=== PATIENT | female | born 1965 | race Caucasian/White ===

== ENCOUNTER 2016-10-24 14:41 | Emergency (ER) | payer OTHER ==
[~2016-10-24] VITALS: Ht 170.2 cm; Wt 125.9 kg
[~2016-10-24 14:41] MED LIST: ASP81TEC PO; Fish Oil; GLU500 PO; INSU100V10 SQ; PRI20 PO; Vitamin D PO; ZES20 PO; lovastatin; niacin
[2016-10-24 14:46] VITALS: BP 146/86; PULSE 111; RESP 18; O2SAT 97
[2016-10-24 15:33] LABS: BASOPHILS % (AUTO) 0.7 % (0-3); EOSINOPHILS % (AUTO) 2.4 % (0-5); MONOCYTES % (AUTO) 6.5 % (4-12); Mean Corpuscular Hemoglobin 28.5 pg (27.0-35.0); Mean Corpuscular Volume 86.5 fL (81-100); NEUTROPHILS % (AUTO) 63.6 % (40-74); Platelet Count 257 bil/L (150-400)
[2016-10-24 15:37] VITALS: BP 136/84; PULSE 104; RESP 18; O2SAT 97
[2016-10-24] MEDS ORDERED: POTA-62 PO (15:44)
[2016-10-24] MEDS ORDERED: INSU100V7 SUBQ (15:44)
[2016-10-24] MEDS ORDERED: METF500T4 PO (15:44)
[2016-10-24] MEDS ORDERED: OMEG1000 PO (15:44)
[2016-10-24] MEDS ORDERED: OMEG-81 PO (15:44)
[2016-10-24] MEDS ORDERED: INSLIS SUBQ (15:44)
[2016-10-24] MEDS ORDERED: LOSA25TA21 PO (15:46)
--- NOTE | 2016-10-24 15:55 | DRSVH ---
PROCEDURE: X-RAY CHEST ONE VIEW, PORTABLE ([id number]) INDICATIONS: Chest pain. TECHNIQUE: One view of the chest was acquired. COMPARISON: [facility], CR, CHEST 2VW, 05/10/2009, 10:10. FINDINGS: Surgical changes and devices: None. Lungs and pleura: No pleural effusions or pneumothorax. Lungs are clear. Mediastinum: Mediastinal contours appear normal. Heart size is normal. Bones and chest wall: No suspicious bony lesions. Overlying soft tissues appear unremarkable. IMPRESSION: Negative chest. No acute cardiopulmonary process is suspected. Dictated by: Ronny Figueroa M.D. on 10/24/2016 at 14:53 Approved by: Ronny Figueroa M.D. on 10/24/2016 at 14:53
[2016-10-24 15:56] LABS: TROPONIN T < 0.010 ug/L (0.0-0.011)
[2016-10-24 16:17] LABS: Magnesium 1.3 mg/dL (1.6-2.6)
[2016-10-24 16:34] VITALS: BP 133/88; PULSE 101; RESP 20; O2SAT 97
[2016-10-24] MEDS ORDERED: Magnesium Sulf 2 Gm/50mL Water 2 GM in IV Premix 1 EACH IV ONE (16:55)
--- NOTE | 2016-10-24 16:55 | ED.REPORT ---
HPI-Chest Pain 40 and Over Date of Service Oct 24, 2016 ED Provider: Alex Soares MD This is a 50 year old female with a history of DM, HTN, GERD, hyperlipidemia presenting to the emergency department due to right sided chest pain that began one week ago. The pain has been constant and has not improved with Tums. It is described as a "gas bubble" sensation. Pain has been constant but moves intermittently. She denies left sided pain. Associated symptoms include bilateral lower extremity swelling. Denies shortness of breath. fever, chills, nausea, vomiting, abdominal pain, numbness or weakness in extremities, diaphoresis. Nursing Notes Stated Complaint: UPPER RIGHT CHEST PAIN AND SWOLLEN FEET Chief Complaint: Chest Pain Nursing Notes Reviewed: Yes ([employer], Lingu[employer] not reconciled) Allergies: Coded Allergies: latex (Verified Allergy, Severe, rash, 05/03/09) Uncoded Allergies: ETOH (Allergy, Severe, gets very sick, 04/29/09) Scheduled ([lovastatin]) HS ([Vitamin D]) 1,000 MG PO DAILY Hydrochlorothiazide (Hydrochlorothiazide) 25 Mg Tablet 50 MG PO DAILY INSULIN GLARGINE-Expunged Drug, Do Not Renew! (Lantus-Expunged Drug, Do Not Renew!) 100 Unit/1 Ml Vial 45 U SQ AM Insulin Glargine (Lantus U100 Insulin Vial) 100 Unit/Ml Vial 48 UNIT SUBQ EVENING Insulin Human Lispro (HumaLOG U100 Insulin Vial) 100 Unit/Ml Unit 15 UNIT SUBQ TID Check blood sugars before meals and at bedtime. Use correction factor only before meals. Blood Sugar Lispro Correction: <151, 0 units; 151-175, 1 unit; 176-200, 2 units; 201-225, 3 units; 226-250, 4 units; 251-275, 5 units; 276-300 , 6 units; 301-325, 7 units; 326-350, 8 units; 351-375, 9 units; 376-400, 10 units; >400, 12 units. Losartan Potassium (Losartan Potassium) 25 Mg Tablet 25 MG PO DAILY Magnesium Oxide (Magnesium Oxide) 400 Mg Tablet 400 MG PO DAILY Metformin (Metformin) 500 Mg Tablet 1,500 MG PO HS Metformin-Expunged Drug, Do Not Renew! (Metformin-Expunged Drug, Do Not Renew!) 500 Mg Tablet 1,000 MG PO AM [place]-3 Fatty Acids (Fish Oil Concentrate) 1,000 Mg Capsule 2,000 MG PO BID Omeprazole-Expunged Drug, Do Not Renew! (Omeprazole-Expunged Drug, Do Not Renew! ) 20 Mg Capcr 20 MG PO BID Potassium Chloride ER (Potassium Chloride ER) 20 Meq Tablet.er 20 MEQ PO DAILY TAKE WITH FOOD Scheduled PRN Nitroglycerin SL (Nitroglycerin SL) 0.4 Mg Tab.subl 0.4 MG SL DIRECTED PRN PRN Esophageal spasm Take 1 tab only IF needed for esophageal spasm. Miscellaneous Medications [place]-3 Fatty Acids/Fish Oil (Fish Oil 1,000 mg Softgel) 1 Each Capsule 1 EACH PO General Time Seen by MD: 16:54 Chief Complaint Chest pain Hx Obtained From: Patient Arrived By: Walk-in Sudden in Onset?: Yes Onset Occurred: 1 week ago Symptom Duration: Since onset Severity: Current: Mild Pertinent Negative: Pt denies other symptoms Recent Healthcare: No recent doctor visit, No recent hospitalization Similar Sx Previous: No Risk Factors )( CAD Risk Stratification Diabetes mellitus Family history Hyperlipidemia Hypertension Risk factors reviewed Past Medical History Past Medical History Diabetes Hypertension GERD Reports: Hyperlipidemia Past Surgical History Laparoscopy for endometriosis 1998 Reports: Cholecystectomy (1987) Smoking History Never Smoker Ambulatory Status Independent Review of Systems Constitutional: Denies: Chills, Fever Complete sys rev & neg: except as marked. Physical Exam Initial Vital Signs Vital Signs (First) Date Time Temp Pulse Resp B/P Pulse Ox O2 Delivery O2 Flow Rate FiO2 10/24/16 14:46 36.7 111 18 146/86 97 Room Air Initial VS: Reviewed, Vital signs abnormal Head / Eyes: Atraumatic, Normocephalic, PERRL ENT: Mucous membranes moist, Conjunctiva normal, No scleral icterus Neck: Supple, Non-tender, Full range of motion Extremities: Vascular intact, Neuro intact, No swelling, No tenderness Skin: Warm, Dry, No cyanosis Neurologic: Alert, Oriented, Nonfocal Psychiatric: Mood/affect normal, Behavior normal, Normal thought content General/Constitutional: Awake, Alert Respiratory / Chest: Breath sounds NL, Breath sounds = bilat, No respiratory distress, No rales, No rhonchi, No wheezing, No stridor, No chest tenderness Cardiovascular: Heart rate NL, Regular rhythm, Heart sounds NL, No gallop, No murmurs, No rubs, Peripheral circulation NL, Pulses = bilaterally No edema in LE Abdomen: Soft, Non-tender, McBurney's non-tender, No guarding, No rebound, BS normoactive, No distention, No hernia, No palpable mass Interpretation & Diagnostics Lab Results Interpretation Result Diagram: 10/24/16 1526 10/24/16 1526 Test 10/24/16 15:26 10/24/16 17:15 White Blood Count 9.7th/mm3 (3.8-10.1) Red Blood Count 4.52mil/mm3 (3.90-5.20) Hemoglobin 12.9g/dL (12.0-15.6) Hematocrit 39.1% (35.0-46.0) Mean Corpuscular Volume 86.5fL (81-100) Mean Corpuscular Hemoglobin 28.5pg (27.0-35.0) Mean Corpuscular Hemoglobin Concent 33.0% (32.0-37.0) Red Cell Distribution Width 14.0% (12.3-15.4) Platelet Count 257bil/L (150-400) Neutrophils (%) (Auto) 63.6% (40-74) Lymphocytes (%) (Auto) 26.3% (14-46) Monocytes (%) (Auto) 6.5% (4-12) Eosinophils (%) (Auto) 2.4% (0-5) Basophils (%) (Auto) 0.7% (0-3) Sodium Level 136mEq/L (134-144) Potassium Level 3.4mEq/L (3.5-5.2) Chloride Level 93mEq/L (97-108) Carbon Dioxide Level 24mmol/L (18-29) Blood Urea Nitrogen 12mg/dL (6-24) Creatinine 0.78mg/dL (0.57-1.00) Estimat Glomerular Filtration Rate 113mL/min (>59) Glucose Level 230mg/dL (60-99) Calcium Level 9.7mg/dL (8.5-10.1) Magnesium Level 1.3mg/dL (1.6-2.6) Total Bilirubin 0.3mg/dL (0.0-1.2) Aspartate Amino Transf (AST/SGOT) 21U/L (0-50) Alanine Aminotransferase (ALT/SGPT) 28U/L (0-32) Alkaline Phosphatase 68U/L (25-150) Total Protein 7.5g/dL (6.4-8.4) Albumin 3.9g/dL (3.4-5.0) Hold Hassan Top Tube Received (Received) Troponin T < 0.010ug/L (0.0-0.011) Lab Results Interpretation: CBC normal CMP Mild nonspecific hypokalemia, mild hyperglycemia Troponin #1 negative Magnesium low ECG Interpretation ECG Interpretation: Sinus tachycardia at a rate of 106 Time: 17:03 Interpreted by: ED physician X-Ray Chest Interpretation Chest Xray Interpretation: IMPRESSION: Negative chest. No acute cardiopulmonary process is suspected. Dictated by: Ronny Figueroa M.D. on 10/24/2016 at 14:53 Approved by: Ronny Figueroa M.D. on 10/24/2016 at 14:53 Re-Eval/Medical Decision Med Decision/Clinical Course Patient's calculated HEART score is 3 (Low risk) His is a 50-year-old female with multiple cardiac risk factors, but no prior history of heart disease. She has had atypical right sided nonexertional chest discomfort continuously present for the past 3 days, called her PCP she thought it was gas combined with some anxiety-but with her risk factors was sent to the ED for further evaluation., And again it is been continuously present. His been no shortness breath, no diaphoresis. She tried some antacids with no relief. She appears well. Her EKG reveals no signs of acute ischemia. She had blood work which was normal including 2 sets of troponins. Chest x-ray was normal. She had complete relief with a single nitroglycerin, raising the possibility of esophageal spasm. Complaining some trace edema of the feet, which is a chronic issue for which he is on hydrochlorothiazide. She has no overt signs of heart failure that I can appreciate, and none is evident on chest x-ray. At this point the patient's low risk for acute cardiac event, I find no evidence clinically to suggest pulmonary embolism or need for testing. The patient is being discharged with routine precautions, she will increase her hydrochlorothiazide for a few days and then return to her baseline dose, additionally her magnesium was slightly low so I recommended oral magnesium for the next week or 2. Routine precautions were reviewed. Give the patient did have complete relief from nitroglycerin and that she would like some medicine to take home, I offered prescription for some nitroglycerin for the possible esophageal spasm, the instructions the patient can take only one (no not repeat doses) if needed. Additionally she does need to follow-up with Chris Patient is discharged much improved condition. Source of Hx: Old records Time of Eval: 18:09 Re-Evaluation/Progress Note: Discussed lab results and plan for d/c, all questions addressed Counseled Regarding: Diagnosis, Lab results, Need for follow-up, When/why to return to ED Discharge & Departure Primary Impression: Chest pain Chest pain type: unspecified Qualified Code: R07.9 - Chest pain, unspecified Additional Impression: Hypomagnesemia Disposition: Home Discharge Condition All VS Reviewed: Yes Condition: Stable Additional Instructions: 1. A dangerous cause of the chest discomfort was not identified. With few risk factors there was concern your symptoms might be secondary to an acute cardiac syndrome. However your tests and emergency department-EKG, chest x-ray , troponin 2 were all negative and normal. 2. No signs of heart failure on her chest x-ray. 3. We do recommend that he follow-up with Dr. Perez discuss repeat stress testing in the near future given your risk factors. 4. Your magnesium was slightly low today, so he received a dose of magnesium pill here and I would recommend continuing this vitamin for the next week or 2. Take magnesium oxide 400mg once day. 5. Increase your hydrochlorithiazide "HCTZ" (water pill) to 50mg once a day for the next three days, then return to your usual 25mg once a day. 6. I have also written for some nitroglycerin-but I would not recommend filling this prescription at this time. The nitroglycerin did help her symptoms , and typically resolve esophageal spasm. Your testing and findings are not indicating it would be for cardiac use. If you needed, take 1-but do not take more than one is it can cause dizziness or low blood pressure. Referrals: Deirdre Perez MD (PCP) Scribe Attestation Portions of this note were transcribed by David Castillo. I, Dr. Soares personally performed the history, physical exam and medical decision-making; I reviewed and confirmed the accuracy of the information in the transcribed note. Signed by Jenanine Hopkins, 10/24/2016 at 18:00. Alex Soares MD Oct 24, 2016 16:55 DAVID CASTILLO Oct 24, 2016 16:58
[2016-10-24] MEDS ORDERED: Magnesium Chloride SR 64 mg ER24 Tablet PO ONE (17:15)
[2016-10-24 18:10] VITALS: BP 133/86; PULSE 92; RESP 20; O2SAT 98
[2016-10-24] MEDS ORDERED: MAGN400T4 PO (18:17)
[2016-10-24] MEDS ORDERED: HYDR25TA4 PO (18:17)
[2016-10-24] MEDS ORDERED: NITR0.4T6 SL (18:23)
[2016-10-24 18:38] VITALS: BP 147/91; PULSE 99; RESP 24; O2SAT 100
== END 2016-10-24 18:35 | disposition home or self-care (01) ==
LOC: SED 14:41
DX: R07.9 Chest pain, unspecified (principal); E83.42 Hypomagnesemia; E11.9 Type 2 diabetes mellitus without complications; I10 Essential (primary) hypertension; K21.9 Gastro-esophageal reflux disease without esophagitis; E78.5 Hyperlipidemia, unspecified; Z91.040 Latex allergy status; Z79.4 Long term (current) use of insulin; Z79.84 Long term (current) use of oral hypoglycemic drugs